=== PATIENT | female | born 1985 | race Caucasian/White ===

== ENCOUNTER 2016-10-29 17:54 | Emergency (ER) | payer OTHER ==
[2016-10-29 18:23] VITALS: BP 125/80
--- NOTE | 2016-10-29 18:33 | UC ---
Respiratory Complaint HPI - History of Current Complaint Stated Complaint: COUGH Time Seen by Provider: 10/29/16 18:20 Hx Obtained From: Patient Hx Last Menstrual Period: 02/22/16 ?: No Onset/Duration: Sudden Onset - one week., Worse Since - the onset. Coughing to the point of vomiting. Character: Cough: Nonproductive Alleviating Factors: Bronchodilator Associated Signs And Symptoms: Positive: Dyspnea, Chills, Wheezing, Nasal Congestion - Allergies/Home Medications Allergies/Adverse Reactions: Allergies Allergy/AdvReac Type Severity Reaction Status Date / Time Penicillin V Allergy Severe Hives Verified 10/29/16 18:23 [From Penicillin VK Potassium] Home Medications: Home Medications Pseudoephedrine HCL ER TAB* [Sudafed 12 Hour*] 120 mg PO BID PRN 10/29/16 [ History Confirmed 10/29/16] PMH/Surg Hx/FS Hx/Imm Hx Endocrine History Of: Denies: Diabetes, Thyroid Disease Cardiovascular History Of: Denies: Cardiac Disorders, Hypertension Respiratory History Of: Reports: Asthma Denies: COPD GI/ History Of: Denies: Ulcer - Surgical History Surgical History: Yes Surgery Procedure, Year, and Place: November 2011 Left Knee reapir ACL, 2003 LUMPECTOMY (LEFT BREAST), 2004 ENSURE CONTROL COILS - Family History Known Family History: Positive: Hypertension - Social History 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 Used peroxide Respiratory: Shortness Of Breath, Cough All Other Systems Reviewed And Are Negative: Yes Physical Exam Triage Information Reviewed: Yes Appearance: Well-Appearing, Well-Nourished, Ill-Appearing Vital Signs Reviewed: Yes Eyes: Positive: Conjunctiva Clear ENT: Positive: Pharynx normal, TMs normal Neck exam: Normal Respiratory: Positive: Lungs clear, Wheezing - expiratory wheeze with coughing. Cardiovascular Exam: Normal Musculoskeletal Exam: Normal Neurological Exam: Normal Psychological Exam: Normal Skin Exam: Normal Respiratory Course/Dx - Differential Dx/Diagnosis Differential Diagnosis/HQI/PQRI: Asthma, Lower Resp Infection, Sinusitis Provider Diagnoses: Acute URI. Acute bronchospasm. Nicotine abuse cigarettes. Discharge - Discharge Plan Condition: Stable Disposition: HOME Prescriptions: Albuterol HFA INHALER* [Ventolin HFA Inhaler*] 2 puff INH Q4H PRN #1 mdi PRN Reason: Wheezing predniSONE TAB* [Deltasone TAB*] 20 mg PO DAILY #18 tab
== END 2016-10-29 18:48 | disposition home or self-care (01) ==
LOC: UCCORT 17:54
DX: J06.9 Acute upper respiratory infection, unspecified (principal); J98.01 Acute bronchospasm; Z88.0 Allergy status to penicillin; F17.210 Nicotine dependence, cigarettes, uncomplicated
CPT/HCPCS: 99212; G0463

== ENCOUNTER 2016-12-27 16:20 | Emergency (ER) | payer OTHER ==
[2016-12-27 17:11] VITALS: BP 123/84
--- NOTE | 2016-12-27 17:24 | UC ---
Lower Extremity/Ankle HPI - HPI Summary HPI Summary: 31 YEAR OLD PRESENTS WITH RIGHT ANKLE PAIN SECONDARY TO FALL. - History of Current Complaint Chief Complaint: UCLowerExtremity Stated Complaint: RIGHT ANKLE PAIN Time Seen by Provider: 12/27/16 17:23 Hx Last Menstrual Period: 12/20/16 - Allergies/Home Medications Allergies/Adverse Reactions: Allergies Allergy/AdvReac Type Severity Reaction Status Date / Time Penicillin V Allergy Severe Hives Verified 12/27/16 17:11 [From Penicillin VK Potassium] Home Medications: Home Medications Acetaminophen TAB* [Tylenol TAB*] 650 mg PO Q4H PRN 12/27/16 [History Confirmed 12/27/16] PMH/Surg Hx/FS Hx/Imm Hx - Surgical History Surgical History: Yes Surgery Procedure, Year, and Place: November 2011 Left Knee reapir ACL, 2003 LUMPECTOMY (LEFT BREAST), 2004 ENSURE CONTROL COILS - Family History Known Family History: Positive: Hypertension - Social History Alcohol Use: Rare Substance Use Type: None Smoking Status (MU): Heavy Every Day Tobacco Smoker Type: Cigarettes Amount Used/How Often: 1/2 - 1 ppd Have You Smoked in the Last Year: Yes Review of Systems Constitutional: Negative Skin: Negative Eyes: Negative ENT: Negative Respiratory: Negative Cardiovascular: Negative Gastrointestinal: Negative Genitourinary: Negative Motor: Negative Neurovascular: Negative Musculoskeletal: Other: - RIGHT ANKLE SPRAIN Neurological: Negative Psychological: Negative All Other Systems Reviewed And Are Negative: Yes Physical Exam Triage Information Reviewed: Yes Vital Signs: Initial Vital Signs Temp 37.3 C 12/27/16 17:08 Pulse 79 12/27/16 17:08 Resp 16 12/27/16 17:08 BP 123/84 12/27/16 17:08 Pulse Ox 98 12/27/16 17:08 Eye Exam: Normal ENT Exam: Normal Dental Exam: Normal Neck exam: Normal Neck: Positive: 1 Respiratory Exam: Normal Cardiovascular Exam: Normal Abdominal Exam: Normal Musculoskeletal: Positive: Other: - RIGTH ANKLE SPRAIN Neurological Exam: Normal Psychological Exam: Normal Skin Exam: Normal Lower Extremity Course/Dx - Differential Dx/Diagnosis Provider Diagnoses: RIGHT ANKLE SPRAIN Discharge - Discharge Plan Condition: Stable Disposition: HOME Prescriptions: Meloxicam [Mobic] 7.5 mg PO BID PC #30 tab Patient Education Materials: Ankle Sprain (ED) Referrals: MAURICIO Damon [Primary Care Provider] -
--- NOTE | 2016-12-27 18:09 | RAD ---
INDICATION: Left lateral ankle pain after a fall COMPARISON: None. TECHNIQUE: 3 views of the right ankle were obtained. FINDINGS: The bones are normal alignment. Joint spaces appear maintained. No fracture is seen. IMPRESSION: Normal ankle radiograph. If the patient's symptoms persist, follow-up imaging is recommended.
== END 2016-12-27 18:24 | disposition home or self-care (01) ==
LOC: UCCORT 16:20
DX: S93.401A Sprain of unspecified ligament of right ankle, initial encounter (principal); W19.XXXA Unspecified fall, initial encounter; F17.210 Nicotine dependence, cigarettes, uncomplicated
CPT/HCPCS: 99213; G0463

== ENCOUNTER 2017-08-27 21:47 | Emergency (ER) | payer OTHER ==
--- NOTE | 2017-08-27 21:52 | UC ---
Lower Extremity/Ankle HPI - HPI Summary HPI Summary: Patient slammed ankle in the car door last night, she is walking on it and has been all day, the area is swollen . - History of Current Complaint Stated Complaint: RIGHT ANKLE INJURY Time Seen by Provider: 08/27/17 21:51 Hx Obtained From: Patient Hx Last Menstrual Period: 12/20/16 ?: No Onset/Duration: Sudden Onset, Lasting Days Severity Initially: Moderate Severity Currently: Moderate Aggravating Factor(s): Standing, Ambulation Alleviating Factor(s): Rest Able to Bear Weight: Yes - Allergies/Home Medications Allergies/Adverse Reactions: Allergies Allergy/AdvReac Type Severity Reaction Status Date / Time Penicillins Allergy Intermediate Hives Verified 08/27/17 21:57 Home Medications: Home Medications Sertraline* [Zoloft*] 100 mg PO BEDTIME 08/27/17 [History Confirmed 08/27/17] PMH/Surg Hx/FS Hx/Imm Hx Previously Healthy: Yes - Surgical History Surgical History: Yes Surgery Procedure, Year, and Place: November 2011 Left Knee reapir ACL, 2003 LUMPECTOMY (LEFT BREAST), 2004 ENSURE CONTROL COILS - Family History Known Family History: Positive: Hypertension - Social History Alcohol Use: Rare Substance Use Type: None Smoking Status (MU): Heavy Every Day Tobacco Smoker Type: Cigarettes Amount Used/How Often: 1/2 - 1 ppd Have You Smoked in the Last Year: Yes Review of Systems Constitutional: Negative Skin: Bruising Eyes: Negative ENT: Negative Respiratory: Negative Cardiovascular: Negative Gastrointestinal: Negative Genitourinary: Negative Motor: Negative Neurovascular: Negative Musculoskeletal: Arthralgia, Myalgia Neurological: Negative Psychological: Negative Is Patient Immunocompromised?: No All Other Systems Reviewed And Are Negative: Yes Physical Exam Triage Information Reviewed: Yes Appearance: Well-Appearing, Well-Nourished, Pain Distress Vital Signs Reviewed: Yes Eye Exam: Normal ENT Exam: Normal Dental Exam: Normal Neck exam: Normal Neck: Positive: Supple, Nontender, No Lymphadenopathy Respiratory Exam: Normal Respiratory: Positive: Chest non-tender, Lungs clear, Normal breath sounds Cardiovascular Exam: Normal Cardiovascular: Positive: RRR, No Murmur, Pulses Normal Abdominal Exam: Normal Abdomen Description: Positive: Nontender, No Organomegaly, Soft Bowel Sounds: Positive: Present Musculoskeletal: Positive: Strength Intact, ROM Limited @ - due ot pain, but can physically move the joint, mild generalized swelling, no brusing, compresion test positive down fibula Neurological Exam: Normal Psychological Exam: Normal Skin Exam: Normal Lower Extremity Course/Dx - Course Course Of Treatment: hx obtained, exam performed ,meds reviewed, negative for fracture, cierra wrap applied and RICE reviewed. - Differential Dx/Diagnosis Differential Diagnosis/HQI/PQRI: Contusion, Dislocation, Fracture (Closed), Sprain, Strain Provider Diagnoses: contusion to right ankle Discharge - Discharge Plan Condition: Stable Disposition: HOME Patient Education Materials: Foot Contusion (ED) Referrals: MAURICIO Damon [Primary Care Provider] - Additional Instructions: 1. wear thae cierra wrap for control of the swelling 2. Ibuprofen and tylenol for pain 3. elevate at rest 4. Warm foot soaks twice a day to promote healing
[2017-08-27 21:56] VITALS: BP 128/86
--- NOTE | 2017-08-27 22:05 | RAD ---
HISTORY: Right ankle trauma COMPARISONS: December 27, 2016 VIEWS: 3, Frontal, lateral, and oblique views of the right ankle FINDINGS: BONE DENSITY: Normal. BONES: There is no displaced fracture. JOINTS: There is no arthropathy. ALIGNMENT: There is no dislocation. SOFT TISSUES: Unremarkable. OTHER FINDINGS: None. IMPRESSION: NO ACUTE OSSEOUS INJURY. IF SYMPTOMS PERSIST, RECOMMEND REPEAT IMAGING.
== END 2017-08-27 22:09 | disposition home or self-care (01) ==
LOC: UCCORT 21:47
DX: S90.01XA Contusion of right ankle, initial encounter (principal); W23.0XXA Caught, crushed, jammed, or pinched between moving objects, initial encounter; Y93.9 Activity, unspecified; Y92.810 Car as the place of occurrence of the external cause; Z88.0 Allergy status to penicillin; F17.210 Nicotine dependence, cigarettes, uncomplicated
CPT/HCPCS: 99212; G0463

== ENCOUNTER 2018-04-30 09:02 | Emergency (ER) | payer OTHER ==
[2018-04-30 09:57] VITALS: BP 118/80
--- NOTE | 2018-04-30 10:13 | UC ---
Lower Extremity/Ankle HPI - HPI Summary HPI Summary: /o L ankle pain for the past week. She states that she was carrying wood and rolled the ankle everting it with pain on the medial aspect of her L ankle. Pt denies pain stating "it is numb", PMH of fracture in same ankle less than 2 years ago - History of Current Complaint Chief Complaint: UCLowerExtremity Stated Complaint: LEFT ANKLE INJURY Time Seen by Provider: 04/30/18 09:50 Hx Obtained From: Patient Hx Last Menstrual Period: 04/02/18 ?: No Onset/Duration: Sudden Onset, Lasting Days Severity Initially: Moderate Severity Currently: Mild Pain Intensity: 0 Aggravating Factor(s): Standing, Ambulation Alleviating Factor(s): Rest, Elevation Able to Bear Weight: Yes - Allergies/Home Medications Allergies/Adverse Reactions: Allergies Allergy/AdvReac Type Severity Reaction Status Date / Time Penicillins Allergy Intermediate Hives Verified 04/30/18 09:57 PMH/Surg Hx/FS Hx/Imm Hx Previously Healthy: Yes - Surgical History Surgical History: Yes Surgery Procedure, Year, and Place: November 2011 Left Knee reapir ACL, 2003 LUMPECTOMY (LEFT BREAST), 2004 ENSURE CONTROL COILS - Family History Known Family History: Positive: Hypertension - Social History Alcohol Use: Rare Substance Use Type: None Smoking Status (MU): Heavy Every Day Tobacco Smoker Type: Cigarettes Amount Used/How Often: 1 1/2 ppd Length of Time of Smoking/Using Tobacco: since age 11 Have You Smoked in the Last Year: Yes Review of Systems All Other Systems Reviewed And Are Negative: Yes Musculoskeletal: Positive: Arthralgia, Myalgia Physical Exam Triage Information Reviewed: Yes Appearance: Well-Appearing, No Pain Distress, Well-Nourished Vital Signs: Initial Vital Signs Temp 98.7 F 04/30/18 09:51 Pulse 65 04/30/18 09:51 Resp 18 04/30/18 09:51 BP 118/80 04/30/18 09:51 Pulse Ox 100 04/30/18 09:51 Vital Signs Reviewed: Yes Eyes: Positive: Conjunctiva Clear ENT: Positive: Hearing grossly normal Neck: Positive: Supple, Nontender Respiratory: Positive: Chest non-tender, Lungs clear, Normal breath sounds, No respiratory distress Cardiovascular: Positive: RRR, No Murmur, Pulses Normal, Brisk Capillary Refill Abdomen Description: Positive: Nontender Musculoskeletal: Positive: Strength Intact, ROM Intact, Edema @ - medial malleolus left ankle with tenderness on palpation. No bruising, no hematoma Neurological: Positive: Alert, Muscle Tone Normal Psychological Exam: Normal Skin Exam: Normal Lower Extremity Course/Dx - Course Course Of Treatment: 32yo with left ankle pain after everting it while carrying some logs. xray of left ankle was negative for fracture, continue RICE, ibuprofen as needed, f/u with PCP in a week - Differential Dx/Diagnosis Provider Diagnoses: Left ankle sprain Discharge - Sign-Out/Discharge Documenting (check all that apply): Patient Departure All imaging exams completed and their final reports reviewed: Yes - Discharge Plan Condition: Stable Disposition: HOME Patient Education Materials: Ankle Sprain (ED), Ibuprofen (By mouth) Referrals: No Primary Care Phys,NOPCP [Primary Care Provider] - [facility] [Outside] - Billing Disposition and Condition Condition: STABLE Disposition: Home
== END 2018-04-30 10:48 | disposition home or self-care (01) ==
LOC: UCCORT 09:02
DX: S93.402A Sprain of unspecified ligament of left ankle, initial encounter (principal); X50.0XXA Overexertion from strenuous movement or load, initial encounter; Y93.01 Activity, walking, marching and hiking; Y92.9 Unspecified place or not applicable; Z88.0 Allergy status to penicillin; F17.210 Nicotine dependence, cigarettes, uncomplicated
CPT/HCPCS: 99212; G0463

== ENCOUNTER 2018-06-07 18:53 | Emergency (ER) | payer SELFPAY ==
[2018-06-07 19:53] VITALS: BP 118/78
--- NOTE | 2018-06-07 21:08 | UC ---
Laceration HPI - HPI Summary HPI Summary: 32 year old female presents with superficial laceration to right index finger that occurred at work around 18:00 today when she accidentally got finger caugth between two plastic crates. Reports full painless ROM to finger. Bleeding controlled with direct pressure prior to arrival. Denies numbness or tingling. - History Of Current Complaint Chief Complaint: UCLaceration Stated Complaint: RT POINTER FINGER LAC (WC) Time Seen by Provider: 06/07/18 20:45 Hx Obtained From: Patient Hx Last Menstrual Period: 06/04/18 Pain Intensity: 0 - Allergies/Home Medications Allergies/Adverse Reactions: Allergies Allergy/AdvReac Type Severity Reaction Status Date / Time Penicillins Allergy Intermediate Hives Verified 06/07/18 19:48 Home Medications: Home Medications NK [No Home Medications Reported] 06/07/18 [History Confirmed 06/07/18] PMH/Surg Hx/FS Hx/Imm Hx Previously Healthy: Yes - Denies significant PMH - Surgical History Surgical History: Yes Surgery Procedure, Year, and Place: November 2011 Left Knee reapir ACL, 2003 LUMPECTOMY (LEFT BREAST), 2004 ENSURE CONTROL COILS - Family History Known Family History: Positive: Hypertension - Social History Occupation: Employed Full-time Lives: With Family Alcohol Use: Rare Substance Use Type: None Smoking Status (MU): Heavy Every Day Tobacco Smoker Type: Cigarettes Amount Used/How Often: 1/2 ppd Length of Time of Smoking/Using Tobacco: since age 11 Have You Smoked in the Last Year: Yes Household Exposure Type: Cigarettes - Immunization History Most Recent Tetanus Shot: UTD; "last couple years" Review of Systems All Other Systems Reviewed And Are Negative: Yes Skin: Positive: Negative - See HPI Motor: Negative: Decreased ROM, Weakness Neurovascular: Negative: Decreased Sensation Musculoskeletal: Negative: Arthralgia Physical Exam - Summary Physical Exam Summary: GENERAL APPEARANCE: Well developed, well nourished, alert and cooperative, and appears to be in no acute distress. CARDIAC: Normal S1 and S2. No S3, S4 or murmurs. Rhythm is regular. There is no peripheral edema, cyanosis or pallor. Extremities are warm and well perfused. Capillary refill is less than 2 seconds. Peripheral pulses intact. LUNGS: Clear to auscultation and percussion without rales, rhonchi, wheezing or diminished breath sounds. ABDOMEN: Positive bowel sounds. Soft, nondistended, nontender. No guarding or rebound. No masses or hepatosplenomegally. MUSKULOSKELETAL: Full active, painless ROM intact to resistance to right index finger. No joint erythema or tenderness. NEUROLOGICAL: Strength and sensation intact. SKIN: Superficial 2 cm C-shaped flap laceration to right index finger over PIP. Bleeding controlled. Triage Information Reviewed: Yes Vital Signs: Initial Vital Signs Temp 97.8 F 06/07/18 19:48 Pulse 67 06/07/18 19:48 Resp 16 06/07/18 19:48 BP 118/78 06/07/18 19:48 Pulse Ox 100 06/07/18 19:48 Vital Signs Reviewed: Yes Laceration Repair - Laceration Repair 1 Description: Linear - C-shaped flap laceration to right index finger over PIP Laceration Size After Repair: Length (cm) - 2 Contamination/FB Removal: None Debridement: None Modified For Repair: No Cleansing Completed Via Routine Prep: Yes Irrigation With Pressure Irrigation Device: No Closure Material: Skin Adhesive, SteriStrips Laceration Course/Dx - Course/Dx Course Of Treatment: 32 year old female presents with superficial laceration to right index finger that occurred at work around 18:00 today when she accidentally got finger caugth between two plastic crates. Reports full painless ROM to finger. Bleeding controlled with direct pressure prior to arrival. Denies numbness or tingling. Exam revealed a superficial C-shaped flap laceration to posterior right index finger over the PIP. Full active painless ROM to resistance. No point tenderness. Sensation intact distally. Wound was thoroughly cleansed with soap an water. Laceration repaired using skin adhesive and single 1/4 in Steri-Strip. Wound care and warning symptoms reviewed with patient. Verbalizes understanding and agrees with POC. - Diagnosis Provider Diagnosis: Laceration of right index finger Discharge - Sign-Out/Discharge Documenting (check all that apply): Patient Departure All imaging exams completed and their final reports reviewed: No Studies - Discharge Plan Condition: Stable Disposition: HOME Patient Education Materials: Finger Laceration (ED), Skin Adhesive Care (ED), Steristrips (ED) Referrals: No Primary Care Phys,NOPCP [Primary Care Provider] - Additional Instructions: Your right finger laceration was repaired using a skin adhesive and Steri- Strip. Be sure not to get the skin adhesive wet for 24 hours as this may degrade the adhesive. After 24 hours you may wash your hands and shower as normal. Do not apply any lotions or ointments to the adhesive as this may dissolve the glue. The Steri-Strip will slowly peel up from the ends. You may trim the ends if needed but do not pull off as this may cause the wound to reopen. Simply allow the Steri-Strip to fall off on its own. Wear the finger splint applied in the clinic for the next 5 days to allow the wound to heal better. You may remove to shower but wear at all other times. Use acetaminophen (Tylenol) or ibuprofen (Advil, Motrin) according to directions as needed for pain. Watch for signs of infection including fever greater than 100.5 F, redness that spreads, swelling of the hand, pain that is not managed with pain medication, numbness or tingling in the hand or fingers, or pus draining from the wound. Seek immediate medical attention should any of these occur. - Billing Disposition and Condition Condition: STABLE Disposition: Home
== END 2018-06-07 21:19 | disposition home or self-care (01) ==
LOC: UCCORT 18:53
DX: S61.210A Laceration without foreign body of right index finger without damage to nail, initial encounter (principal); Z88.0 Allergy status to penicillin; F17.210 Nicotine dependence, cigarettes, uncomplicated; W23.0XXA Caught, crushed, jammed, or pinched between moving objects, initial encounter; Y92.9 Unspecified place or not applicable
CPT/HCPCS: 12001; 99211; G0463